=== PATIENT | male | born 1985 | race Caucasian/White ===

== ENCOUNTER 2022-01-28 01:40 | Emergency (ER) | payer BC, MEDICAID ==
[~2022-01-28] VITALS: Ht 180.3 cm; Wt 117.9 kg
[2022-01-28 01:56] VITALS: BP_SYST 110
--- NOTE | 2022-01-28 02:03 | NUR ---
Patient triaged and placed in room 6. VSS and patient appears in no acute distress at this time. MD Marley notified of need for MSE. Triage report given to ETHAN Hamilton.
--- NOTE | 2022-01-28 02:04 | NUR ---
AT BEDSIDE EXAMINING PT.
[2022-01-28] MEDS ORDERED: IBUPROFEN 800 MG TABLET PO ONE (02:15)
[2022-01-28] MEDS ORDERED: DIPHTH,PERTUSS(ACELL),TET VAC 0.5 ML VIAL (Tdap) I.M. ONE (02:15)
[2022-01-28] MEDS ORDERED: AMOXICILLIN/CLAVULANATE POTASSIUM 500 MG TABLET PO ONE (02:15)
[2022-01-28] MEDS ORDERED: AMOXICILLIN/CLAVULANATE POTASSIUM 250 MG/5 ML, 75 ML BTL PO ONE (02:15)
[2022-01-28] MEDS ORDERED: AMOX-423 PO (02:17)
--- NOTE | 2022-01-28 02:25 | NUR ---
Pt BIB family to ED, a 36-year-old male with no significant history of presents to the emergency department with dog bite. 1 hour prior to presentation patient was attempting to break up his dogs when they bit him on the left wrist and hand. Patient is not up-to-date on immunizations. Complains of moderate to severe pain especially in the left dorsal wrist and left thenar area where the dog bit. Pain described as sharp and nonradiating.
[2022-01-28] MEDS ORDERED: AMOXICILLIN/CLAVULANATE POTASSIUM 875 MG TABLET PO ONE (02:45)
[2022-01-28] MEDS ORDERED: NEOMY SULF/BACITRAC ZN/POLY 28 GM OINT..GM. TP SCH (03:00)
[2022-01-28 03:10] VITALS: BP_SYST 110
--- NOTE | 2022-01-28 03:10 | NUR ---
Patient given written and verbal discharge instructions and verbalizes understanding. ER MD discussed with patient the results and treatment provided. Patient in stable condition. ID arm band removed. Rx of Augmentin given. Patient educated on pain management and to follow up with PMD. Pain Scale 0/10 Opportunity for questions provided and answered. Medication side effect fact sheet provided.
== END 2022-01-28 03:10 | disposition home or self-care (01) ==
LOC: SED 01:40
DX: S61.552A Open bite of left wrist, initial encounter (principal); Z79.899 Other long term (current) drug therapy; W54.0XXA Bitten by dog, initial encounter; Y93.89 Activity, other specified; Y92.89 Other specified places as the place of occurrence of the external cause; Y99.8 Other external cause status
CPT/HCPCS: 90715; 99283